=== PATIENT | female | born 1940 | race Caucasian/White ===

== ENCOUNTER 2025-04-29 16:32 | Emergency (ER) | payer MEDICARE, SELFPAY ==
[2025-04-29 16:32] VITALS: BP 148/68; PULSE 72; RESP 16; TEMP 36.5; O2SAT 97
--- NOTE | 2025-04-29 16:58 | EDS_ITS ---
HPI History of Present Illness Chief Complaint: Allergic Reaction Informant: patient Narrative Narrative: 84-year-old female presenting to the emergency room out of concern for reaction to her iron infusion. Patient states that she went to the infusion center [facility] today and at 1300 began to receive an infusion of Ferrlecit. She states she finished at around 1600. She states that after the infusion when they flushed her IV she began to experience itching pain in her left kidney and now notes that her hands feel swollen. She denies any shortness of breath. She denies any hives. She believes she has had this medication in the past but is not sure. [facility] Medical History Tubular adenoma of colon Angiodysplasia of small intestine Tortuous colon Schatzki's ring Hypothyroidism Hypertension Hiatal hernia Herpes Hemorrhoids GERD (gastroesophageal reflux disease) Diverticulosis Constipation Colon polyp Montes's esophagus Anemia Home Medications ?Medication ?Instructions ?Recorded ?Last Taken ?Type amlodipine 2.5 mg tablet 2.5 mg PO QDAY 03/27/25 Unkn own History ascorbic acid (vitamin C) 500 mg 500 mg PO QDAY Unknown History tablet levothyroxine 75 mcg tablet 75 mcg PO QDAY 03/27/25 Un known History (Synthroid) lisinopril 10 mg tablet 10 mg PO QDAY 03/27/25 Unkno wn History magnesium oxide 400 mg (241.3 mg 400 mg PO QDAY Unknown History magnesium) tablet pantoprazole 40 mg tablet,delayed 40 mg PO QDAY Unknown History release sennosides 8.6 mg tablet (senna) 17.2 mg PO BID Unknown History acyclovir 400 mg tablet 400 mg PO .COMPLEX PRN cold sores 04/07/25 Unknown History Allergy/AdvReac Type Severity Reaction Status Date / Time Sulfa (Sulfonamide AdvReac Intermediate Hives Verified 04/29/25 16:36 Antibiotics) Family History Mother Leukemia adopted Surgical History History of endoscopy History of abdominal hysterectomy History of cholecystectomy History of hernia repair History of appendectomy Esophageal dilatation History of colonoscopy History of esophagogastroduodenoscopy Social History Smoking Status: Never smoker alcohol intake: never substance use type: does not use caffeine: Yes (Occasionally. ) ROS ROS ED Constitutional Constitutional ED: Denies chills, fever(s) or weight loss Eyes Eyes: Denies change in vision or diplopia ENT ENT ED: Denies ear pain, rhinorrhea or sore throat Cardiovascular Cardiovascular: Denies chest pain, orthopnea, palpitations or racing heartbeat Respiratory/Chest Respiratory/Chest: Denies cough, dyspnea or orthopnea Gastrointestinal Gastrointestinal: Denies abdominal pain, diarrhea, nausea or vomiting Genitourinary Genitourinary ED: Denies dysuria, hematuria or urinary frequency Musculoskeletal Musculoskeletal: Reports back pain; Denies arthralgias or myalgias Integumentary Reports other Details: Bilateral hand swelling and purpleish fingers. Pruritus ; Denies abscess or rash Neurologic Neurologic: Denies headache(s) or weakness Psychiatric Psychiatric: Denies anxiety, depression, suicidal ideation or suicidal thoughts Endocrine Endocrinology: Denies polydipsia, polyphagia or polyuria Allergic/Immunologic Allergic/Immunologic ED: Denies mouth swelling, tongue swelling or urticaria EXAM Physical Exam Const Vital Signs: 04/29/25 16:32 04/29/25 18:32 04/29/25 19:21 Temperature 97.7 F L 98.3 F Temperature Source Oral Pulse Rate 72 63 97 Respiratory Rate 16 22 H 27 H Blood Pressure 148/68 H 143/81 H 122/75 H Blood Pressure Mean 94 101 90 Pulse Ox 97 98 99 Oxygen Delivery Method Room Air Room Air Positive well nourished and well developed General Appearance ED: well developed and NAD HEENT Reports normocephalic, head/scalp atraumatic and moist mucous membranes HEENT Narrative: No tongue lip or uvula swelling Eyes PERRL and EOMs intact bilaterally Neck no lymphadenopathy, supple and no JVD Resp normal respiratory effort and clear to auscultation bilaterally Cardio regular rate, regular rhythm and no murmurs GI normal to inspection, nondistended, normoactive bowel sounds and non-tender Palpation: soft Back/Spine no CVA tenderness and normal ROM Extremity Extremity Narrative: Patient appears to have very mild edema of the hands. The fingers have a purpleish hue on the palmar aspect. Neuro oriented x3 and CN's II-XII intact bilaterally Sensorium / Orientation: alert Motor Exam: strength 5/5 throughout Psych mental status grossly normal Mood & Affect: Negative for depressed or tearful Skin no rashes or lesions noted and no wounds Skin Narrative: I do not appreciate any hives MDM MDM MDM Narrative Medical decision making narrative: Differential diagnosis includes but not limited to infusion reaction anaphylaxis acute allergic reaction urticaria Basic blood work was obtained and reviewed. Patient received a dose of Benadryl Pepcid and later hydrocortisone. She was there is in the department. She has had no hypotension. She has had no airway involvement. Her hands have not significantly changed. I do not see any findings on the feet or development of urticaria. 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 Alejandra. They will have the patient be seen tomorrow for repeat examination. With patient and family and they know understanding of this plan. Patient to return if she has any concerns or worsening History & Record Review Discussion w/independent historian: Patient and Family Additional record(s) reviewed:: Prior outpatient record and Prior labs Lab Data Attestation: I reviewed the patient's lab results. Labs: Laboratory Results - last 24 hr 04/29/25 17:00 WBC 7.4 RBC 5.27 Hgb 14.6 Hct 45.1 MCV 85.6 MCH 27.7 MCHC 32.4 RDW Std Deviation 57.0 H RDW Coeff of Yesika 18.2 H Plt Count 323 MPV 9.9 Immature Gran % (Auto) 0.100 Neut % (Auto) 54.3 Lymph % (Auto) 37.5 Gentry % (Auto) 6.4 Eos % (Auto) 0.9 Baso % (Auto) 0.8 Absolute Neuts (auto) 4.0 Absolute Lymphs (auto) 2.77 Nucleated RBC % 0 Sodium 142 Potassium 3.5 Chloride 108 Carbon Dioxide 23.1 Anion Gap 11 BUN 8 Creatinine 0.66 L Est GFR (MDRD) Non-Af 86 BUN/Creatinine Ratio 11.7 Glucose 103 H Calcium 8.8 Management Discussion w/another healthcare provider: Eng[employer] Set Up Operator (Dr Alejandra) Discharge Plan Triage Chief Complaint: Allergic Reaction ED Provider: Jhonatan Osman Dx/Rx/DC Orders Clinical Impression: Infusion reaction, Bilateral hand swelling, Pruritus Instructions: ED Drug Reaction, Other Prescriptions: No Action amlodipine 2.5 mg tablet 2.5 mg PO QDAY levothyroxine [Synthroid] 75 mcg tablet 75 mcg PO QDAY magnesium oxide 400 mg (241.3 mg magnesium) tablet 400 mg PO QDAY ascorbic acid (vitamin C) 500 mg tablet 500 mg PO QDAY pantoprazole 40 mg tablet,delayed release (DR/EC) 40 mg PO QDAY lisinopril 10 mg tablet 10 mg PO QDAY sennosides [senna] 8.6 mg tablet 17.2 mg PO BID acyclovir 400 mg tablet 400 mg PO .COMPLEX PRN (Reason: cold sores) Rx Instructions: 400 mg orally ; As directed PRN; Primary Care Provider: Ousmane Smith Referrals: Ousmane Smith MD [Primary Care Provider, Family Practice] Ousmane Alejandra MD [Med Staff - Active Staff, Hematology & Oncology] - 1 Day Print Language: Tamazight Disposition Disposition: Home, Self Care
[2025-04-29] MEDS: DiphenhydrAMINE 50 MG/ML Syringe 25 MG IV (17:05)
[2025-04-29 17:09] LABS: Hematocrit 45.1 % (37-47); Hemoglobin 14.6 g/dL (12.0-15.0); Immature Granulocytes Count 0.010 X10^3/uL (0.0-0.0); Mean Corp Hgb Conc 32.4 g/dL (32-36); Mean Corpuscular Volume 85.6 fL (81-99); Mean Platelet Vol. 9.9 fl (6.2-12.0); NRBC Flagged by Analyzer 0 % (0-5); Platelet Count 323 K/mm3 (150-450); RBC Distribution Width CV 18.2 % (11.6-14.6); RBC Distribution Width SD 57.0 fl (35.1-43.9); Red Blood Count 5.27 M/mm3 (4.2-5.4); White Blood Count 7.4 K/mm3 (4.4-11.0)
[2025-04-29 17:40] LABS: Anion Gap 11 (5-15); BUN 8 mg/dL (4-19); BUN/Creat Ratio 11.7 RATIO (10-20); Calcium,Total 8.8 mg/dL (7.6-11.0); Carbon Dioxide 23.1 mmol/L (21.0-32.0); Chloride 108 mmol/L (98-108); Glucose 103 mg/dL (70-99); Potassium 3.5 mmol/L (3.3-5.1)
[2025-04-29 18:32] VITALS: BP 143/81; PULSE 63; RESP 22; O2SAT 98
[2025-04-29 19:21] VITALS: BP 122/75; PULSE 97; RESP 27; TEMP 36.8; O2SAT 99
== END 2025-04-29 19:59 | disposition home or self-care (01) ==
PROVIDERS: Emergency Provider Emergency Medicine; PCP Family Medicine; Visit Provider Emergency Medicine
DX: L29.89 Other pruritus (principal); M79.89 Other specified soft tissue disorders; T45.4X5A Adverse effect of iron and its compounds, initial encounter; I10 Essential (primary) hypertension; Z79.899 Other long term (current) drug therapy
CPT/HCPCS: 80048; 85025; 96374; 96375; 99284; A4216